=== PATIENT | female | born 1950 | race Caucasian/White ===

== ENCOUNTER 2016-11-26 12:06 | Emergency (ER) | payer MEDICARE, BC ==
[2016-11-26 12:34] VITALS: BP 143/79
--- NOTE | 2016-11-26 13:33 | EDM.PDOC ---
[id number]: LOWER BACK PAIN Time Seen by Provider: 11/26/16 12:45 Source of Information: Reports: Patient History Limitations: Reports: No Limitations - History of Present Illness INITIAL COMMENTS - FREE TEXT/NARRATIVE: 66-year-old female with chronic recurring low back pain has a current flare over the last several days. No specific trauma. The most pain is when she strained to get up out of a chair and get moving, when she is up and walking it' s much better. No lower extremity symptoms such as paresthesias or weakness. No incontinence. She does not take anti-inflammatories because she is on Coumadin, her pro time typically is stable and she has not had dose adjustments" a long time". No fevers or chills, no urinary symptoms Location: Reports: Back Severity: Mild Worsens with: Reports: Other (Trying to get up from a sitting position) Associated Symptoms: Reports: Other (Patient has some chronic peripheral neuropathy, it is unchanged) - Related Data Allergies Allergy/AdvReac Type Severity Reaction Status Date / Time fluoxetine HCl [From Prozac] Allergy Severe Rash Verified 11/04/13 16:11 bupropion HCl Allergy Intermediate Hives Verified 11/04/13 16:11 [From Wellbutrin] Home Meds: Home Meds DULoxetine HCl [Cymbalta] 90 mg PO DAILY 11/04/13 [History] Digoxin [Digoxin] 250 mcg PO DAILY 11/04/13 [History] Lisinopril [Lisinopril] 5 mg PO DAILY 11/04/13 [History] Verapamil HCl [Verapamil ER] 240 mg PO BID 11/04/13 [History] Warfarin Sodium [Warfarin Sodium] 10 mg PO DAILY 11/04/13 [History] atorvaSTATin [Lipitor] 20 mg PO BEDTIME 11/04/13 [History] clonazePAM [Clonazepam] 1.5 mg PO BEDTIME 11/04/13 [History] metFORMIN [Glucophage] 1,000 mg PO BID 11/04/13 [History] Linagliptin [Tradjenta] 1 tab PO DAILY 12/27/15 [History] Past Medical History Cardiovascular History: Reports: Afib, High Cholesterol, Hypertension Endocrine/Metabolic History: Reports: Diabetes, Type II Social & Family History - Tobacco Use Smoking Status *Q: Never Smoker - Alcohol Use Days Per Week of Alcohol Use: 0 - Recreational Drug Use Recreational Drug Use: No ED ROS GENERAL - Review of Systems Review Of Systems: See Below Constitutional: Denies: Fever, Chills, Malaise HEENT: Reports: No Symptoms Respiratory: Denies: Shortness of Breath Cardiovascular: Denies: Chest Pain GI/Abdominal: Denies: Abdominal Pain : Reports: No Symptoms Skin: Reports: No Symptoms Neurological: Reports: Other (Peripheral neuropathy) ED EXAM,LOWER BACK PAIN/INJURY - Physical Exam Exam: See Below Exam Limited By: No Limitations General Appearance: Alert, No Apparent Distress Respiratory/Chest: No Respiratory Distress Back Exam: Paraspinal Tenderness (Some paraspinous tenderness to palpation over the lower lumbar spine, no pain with rotation against resistance) Neurological: No Motor/Sensory Deficits. No: Straight Leg Raise (L), Straight Leg Raise (R) Course - Vital Signs Last Recorded V/S: Last Vital Signs Temp 98.0 F 11/26/16 12:47 Pulse 93 11/26/16 12:47 Resp 22 H 11/26/16 12:47 BP 143/79 H 11/26/16 12:47 Pulse Ox 96 11/26/16 12:47 - Re-Assessments/Exams Free Text/Narrative Re-Assessment/Exam: 11/27/16 07:04 Patient is interested in some physical therapy which she has responded to well in the past, a referral was made for next week. She is also going to take 2 Aleve twice daily for the next 4 days and then return next Monday for a pro time and INR. She can return sooner if worsening. Departure - Departure Time of Disposition: 13:40 Disposition: Home, Self-Care 01 Condition: Good Clinical Impression: Low back pain Qualifiers: Chronicity: acute Back pain laterality: bilateral Sciatica presence: without sciatica Qualified Code(s): M54.5 - Low back pain - Discharge Information Instructions: Back Pain, Adult, [id number] Referrals: PCP,None [Primary Care Provider] - Forms: ED Department Discharge Care Plan Goals: Try 2 Aleve twice a day for the next 2-4 days. Return next Monday for a pro time checked. Increase activity as tolerated, physical therapy will call you next week to discuss possible times for evaluation and treatment.
== END 2016-11-26 13:40 | disposition home or self-care (01) ==
LOC: JP.ED 12:06
DX: M54.5 Low back pain (principal); I48.91 Unspecified atrial fibrillation; E78.00 Pure hypercholesterolemia, unspecified; I10 Essential (primary) hypertension; E11.9 Type 2 diabetes mellitus without complications; Z79.01 Long term (current) use of anticoagulants; Z79.899 Other long term (current) drug therapy; Z88.8 Allergy status to other drugs, medicaments and biological substances; X58.XXXA Exposure to other specified factors, initial encounter
CPT/HCPCS: 99283